=== PATIENT | male | born 1970 | race Caucasian/White ===

== ENCOUNTER 2017-12-30 13:52 | Emergency (ER) | payer BC ==
[2017-12-30] MEDS ORDERED: Alum Hydrox/Mag Hydrox/Simeth 30 ML, Lidocaine 2% 15 ML PO ONE ×2 (15:02)
[2017-12-30] MEDS ORDERED: Aspirin 81 MG Tab.Chew PO ONE (15:02)
[2017-12-30] MEDS ORDERED: Sodium Chloride 0.9% 10 ML Syringe FLUSH PRN (15:02)
--- NOTE | 2017-12-30 15:07 | EDM.PDOC ---
ED HPI GENERAL MEDICAL PROBLEM - General Chief Complaint: Neuro Symptoms/Deficits Stated Complaint: DIZZINESS/LIGHTHEADED Time Seen by Provider: 12/30/17 14:56 Source of Information: Reports: Patient History Limitations: Reports: No Limitations - History of Present Illness INITIAL COMMENTS - FREE TEXT/NARRATIVE: 47-year-old male presents ED complaining of left anterior chest discomfort worse with palpation. This started yesterday while driving in his vehicle. Patient states while driving he became dizzy and had the sensation he was going to pass out. Developed some tingling and numbness to his extremities that has all subsided. States he's had upset stomach and has noticed increased burping. He is currently on a high-protein diet. He is not short of breath. Denies any fevers. He's had no previous symptoms as such. There is no nausea or vomiting. He did not become diaphoretic with this episode. He describes the discomfort to the left anterior chest as a gnawing sensation not really a pain but just the discomfort. He does have a history of chronic back problems. There is 1st degree relatives with family history of heart disease. He currently is on medications for hypertension, hyperglycemia, and also takes a baby aspirin. Denies any increase acid reflux. No worsening symptoms noted with exertion. Patient does smoke 1.5 packs per day. No alcohol or recreational drug use. Discomfort is rated 2 out of 10. 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: Other (see below) Other Treatments WINDOW MAKER: referred from clinic left shoulder Pain Score (Numeric/FACES): 2 - Related Data Allergies Allergy/AdvReac Type Severity Reaction Status Date / Time No Known Allergies Allergy Verified 12/30/17 14:07 Home Meds: Home Meds Aspirin [Halfprin] 81 mg PO DAILY 12/30/17 [History] Diltiazem HCl [Diltiazem ER] 240 mg PO DAILY 12/30/17 [History] atorvaSTATin [Lipitor] 20 mg PO DAILY 12/30/17 [History] Past Medical History HEENT History: Reports: Impaired Vision Cardiovascular History: Reports: High Cholesterol, Hypertension Musculoskeletal History: Reports: Back Pain, Chronic Social & Family History - Family History Family Medical History: Noncontributory - Tobacco Use Smoking Status *Q: Current Every Day Smoker Years of Tobacco use: 25 Packs/Tins Daily: 1.5 - Caffeine Use Caffeine Use: Reports: Coffee, Tea - Recreational Drug Use Recreational Drug Use: No ED ROS GENERAL - Review of Systems Review Of Systems: ROS reveals no pertinent complaints other than HPI. ED EXAM, GENERAL - Physical Exam Exam: See Below Exam Limited By: No Limitations General Appearance: Alert, WD/WN, No Apparent Distress Eye Exam: Bilateral Eye: Normal Inspection Ears: Hearing Grossly Normal Nose: Normal Inspection Throat/Mouth: Normal Voice, No Airway Compromise Head: Atraumatic, Normocephalic Neck: Normal Inspection, Supple, Non-Tender, Full Range of Motion Respiratory/Chest: No Respiratory Distress, Lungs Clear, Normal Breath Sounds, No Accessory Muscle Use, Other (Tenderness noted to the left anterior chest just inferior to the clavicle worse with palpation. No swelling, bruising, rash , bony abnormalities.) Cardiovascular: Normal Peripheral Pulses, Regular Rate, Rhythm, No Murmur Peripheral Pulses: 2+: Radial (L), Radial (R), Posterior Tibial (L), Posterior Tibial (R) GI/Abdominal: Normal Bowel Sounds, Soft, Non-Tender, No Organomegaly, No Distention Extremities: Normal Inspection, Normal Range of Motion, Non-Tender, No Pedal Edema Neurological: Alert, Oriented, CN II-XII Intact, Normal Cognition, No Motor/ Sensory Deficits Psychiatric: Normal Affect, Normal Mood Skin Exam: Warm, Dry, Intact, Normal Color, No Rash Course - Vital Signs Last Recorded V/S: Last Vital Signs Temp 99.0 F 12/30/17 17:03 Pulse 82 12/30/17 17:03 Resp 14 12/30/17 17:03 BP 139/79 12/30/17 17:03 Pulse Ox 98 12/30/17 17:03 - Orders/Labs/Meds Orders: Active Orders 24 hr Category Date Time Status EKG Documentation Completion [RC] ASDIRECTED Care 12/30/17 14:35 Active Peripheral IV Care [RC] . DIRECTED Care 12/30/17 15:02 Active CXR [Chest 1V Frontal] [CR] Stat Exams 12/30/17 15:01 Taken Peripheral IV Insertion Adult [OM.PC] Routine Oth 12/30/17 15:02 Ordered EKG 12 Lead [EK] Stat Ther 12/30/17 14:34 Ordered Labs: Laboratory Tests 12/30/17 12/30/17 Range/Units 15:10 15:10 WBC 10.15 H (4.23-9.07) K/mm3 RBC 5.70 (4.63-6.08) M/mm3 Hgb 16.0 (13.7-17.5) gm/L Hct 46.8 (40.1-51.0) % MCV 82.1 (79.0-92.2) fl MCH 28.1 (25.7-32.2) pg MCHC 34.2 (32.2-35.5) g/dl RDW Std Deviation 46.6 H (35.1-43.9) fL Plt Count 178 (163-337) K/mm3 MPV 11.2 (9.4-12.3) fl Neutrophils % (Manual) 61 H (40-60) % Band Neutrophils % 0 (0-10) % Lymphocytes % (Manual) 26 (20-40) % Atypical Lymphs % 0 % Monocytes % (Manual) 10 (2-10) % Eosinophils % (Manual) 1 (0.8-7.0) % Basophils % (Manual) 2 H (0.2-1.2) Platelet Estimate Adequate Plt Morphology Comment Normal RBC Morph Comment Normal Sodium 139 (136-145) mEq/L Potassium 3.7 (3.5-5.1) mEq/L Chloride 105 (98-107) mEq/L Carbon Dioxide 26 (21-32) mEq/L Anion Gap 11.7 (5-15) BUN 12 (7-18) mg/dL Creatinine 0.9 (0.7-1.3) mg/dL Est Cr Clr Drug Dosing 110.39 mL/min Estimated GFR (MDRD) > 60 (>60) mL/min BUN/Creatinine Ratio 13.3 L (14-18) Glucose 106 (74-106) mg/dL Calcium 9.3 (8.5-10.1) mg/dL Total Bilirubin 0.4 (0.2-1.0) mg/dL AST 22 (15-37) U/L ALT 31 (16-63) U/L Alkaline Phosphatase 88 (46-116) U/L Troponin I < 0.017 (0.00-0.056) ng/mL C-Reactive Protein 1.0 (<1.0) mg/dL Total Protein 7.4 (6.4-8.2) g/dl Albumin 4.0 (3.4-5.0) g/dl Globulin 3.4 gm/dL Albumin/Globulin Ratio 1.2 (1-2) Meds: Medications Discontinued Medications Generic Name Dose Route Start Last Admin Trade Name Shaun PRN Reason Stop Dose Admin Aspirin 324 mg 12/30/17 15:02 12/30/17 15:16 Aspirin PO 12/30/17 15:03 324 mg ONETIME ONE Administration Al Hydroxide/Mg Hydroxide 30 0 ml 12/30/17 15:02 12/30/17 15:17 ml/ Lidocaine HCl 15 ml PO 12/30/17 15:03 45 ml ONETIME ONE Administration Sodium Chloride 10 ml 12/30/17 15:02 12/30/17 15:10 Saline Flush FLUSH 10 ml ASDIRECTED PRN Administration Keep Vein Open - Re-Assessments/Exams Free Text/Narrative Re-Assessment/Exam: IV established. Aspirin 324 mg by mouth. GI cocktail ordered. Initial lab studies will include: CBC, chem 14, CRP, troponin, UA, chest x-ray, and EKG. EKG sinus tachycardia rate [address] changes noted. Current heart rate 89. Blood pressure 145/87. SPO2 97%. Chest x-ray impression: no acute findings. reviewed with Dr. Shirley. Final interpretation is pending. Labs reviewed: CBC and chemistry panel were essentially normal. Troponin normal. CRP normal. 1600 Reassessment, discomfort has completely resolved with GI cocktail. He is ready to be discharged home. I suspect this is GI related but believe patient requires further cardiac workup 2nd to [facility] and family hx. He will see pcp this week for reexamination and schedule cardiac stress test. The patient remained hemodynamically stable while under my care in the E.D. I discussed the concerning symptoms for which to return to the E.D. with the patient. The patient verbalized understanding. All questions were answered. Departure - Departure Time of Disposition: 16:47 Disposition: Home, Self-Care 01 Condition: Good Clinical Impression: Dyspepsia, Chest wall pain Instructions: Chest Wall Pain Referrals: Raúl Hankins Jr, MD [Primary Care Provider] - Forms: ED Department Discharge Additional Instructions: Take Prilosec 40 mg every morning half-hour prior to eating breakfast. May utilize Maalox intermittently through the day for stomach irritation. Refrain from foods and drinks that cause stomach irritation. Suspect discomfort with a left anterior chest is chest wall at related. But would request do See your PCp this week for reevaluation and to schedule cardiac stress test. Due to your past medical history, family history, and smoking history suggest further cardiac workup. Stop smoking. Return to the E.D. if you develop any new or worsening symptoms. - My Orders Last 24 Hours: My Active Orders 12/30/17 14:34 EKG 12 Lead [EK] Stat 12/30/17 14:35 EKG Documentation Completion [RC] ASDIRECTED 12/30/17 15:01 CXR [Chest 1V Frontal] [CR] Stat 12/30/17 15:02 Peripheral IV Care [RC] . DIRECTED Peripheral IV Insertion Adult [OM.PC] Routine - Assessment/Plan Last 24 Hours: My Active Orders 12/30/17 14:34 EKG 12 Lead [EK] Stat 12/30/17 14:35 EKG Documentation Completion [RC] ASDIRECTED 12/30/17 15:01 CXR [Chest 1V Frontal] [CR] Stat 12/30/17 15:02 Peripheral IV Care [RC] . DIRECTED Peripheral IV Insertion Adult [OM.PC] Routine
--- NOTE | 2017-12-31 08:24 | CR ---
Chest: Portable view of the chest was obtained. Comparison: No prior chest x-ray. Heart size and mediastinum are normal. Lungs are clear. Bony structures are grossly intact. Impression: 1. Nothing acute is seen on portable chest x-ray. Diagnostic code #1
== END 2017-12-30 17:03 | disposition home or self-care (01) ==
LOC: JD.ED 13:52
DX: R10.13 Epigastric pain (principal); R07.89 Other chest pain; E78.00 Pure hypercholesterolemia, unspecified; I10 Essential (primary) hypertension; Z79.82 Long term (current) use of aspirin; F17.210 Nicotine dependence, cigarettes, uncomplicated
CPT/HCPCS: 36415; 71045; 80053; 84484; 85007; 85027; 86140; 93005; 99285; A9270; J7050; 93010; 99284

== ENCOUNTER 2022-01-09 10:12 | Day surgery (SDC) | payer BC ==
[~2022-01-09 10:12] MED LIST: Lactated Ringers 1,000 ML IV SCH; Lidocaine 1%/Sod Bicarbonate in NS 8.4% 1 ML Syringe IDERM PRN; Sodium Chloride 0.9% 10 ML Syringe FLUSH PRN; Sodium Chloride 0.9% 10 ML Syringe FLUSH SCH
[2022-01-09] MEDS ORDERED: Lidocaine 1% 4 ML ONE (12:27)
[2022-01-09] MEDS ORDERED: Propofol 200 MG/20 ML SDV ONE ×2 (12:27→12:28)
[2022-01-09] MEDS ORDERED: Midazolam 1 MG/ML 2 ML SDV ONE (12:33)
[2022-01-09] MEDS ORDERED: fentaNYL 100 MCG/2 ML SDV ONE (12:34)
== END 2022-01-09 14:27 | disposition home or self-care (01) ==
LOC: JD.SDS 10:12
PROVIDERS: ATTEND Surgery
DX: Z12.11 Encounter for screening for malignant neoplasm of colon (principal); D12.3 Benign neoplasm of transverse colon; D12.8 Benign neoplasm of rectum; I10 Essential (primary) hypertension; K21.9 Gastro-esophageal reflux disease without esophagitis; E78.00 Pure hypercholesterolemia, unspecified; G47.33 Obstructive sleep apnea (adult) (pediatric); E11.9 Type 2 diabetes mellitus without complications; Z98.890 Other specified postprocedural states; Z79.02 Long term (current) use of antithrombotics/antiplatelets; Z79.899 Other long term (current) drug therapy; Z79.84 Long term (current) use of oral hypoglycemic drugs; Z87.891 Personal history of nicotine dependence; Z91.018 Allergy to other foods
CPT/HCPCS: 45380; 45385; 82947; J2250; J2704; J3010; J7120

== ENCOUNTER 2025-03-15 06:38 | Day surgery (SDC) | payer BC ==
[~2025-03-15 06:38] MED LIST changes: -Lactated Ringers 1,000 ML IV SCH; -Lidocaine 1%/Sod Bicarbonate in NS 8.4% 1 ML Syringe IDERM PRN
[2025-03-15] MEDS ORDERED: propofoL 500 MG/50 ML 50 ML ONE (06:54)
[2025-03-15] MEDS: Lactated Ringers 1,000 ML IV SCH (07:00)
[2025-03-15] MEDS ORDERED: Propofol 200 MG/20 ML SDV ONE (07:34)
== END 2025-03-15 08:10 | disposition home or self-care (01) ==
LOC: JD.SDS 06:38
PROVIDERS: ATTEND Surgery
DX: Z12.11 Encounter for screening for malignant neoplasm of colon (principal); D12.2 Benign neoplasm of ascending colon; K63.5 Polyp of colon; K63.89 Other specified diseases of intestine; E11.9 Type 2 diabetes mellitus without complications; I10 Essential (primary) hypertension; Z86.0101 Personal history of adenomatous and serrated colon polyps; Z91.018 Allergy to other foods; Z79.82 Long term (current) use of aspirin; Z79.899 Other long term (current) drug therapy; Z87.891 Personal history of nicotine dependence
CPT/HCPCS: 45384; J2003; J2704; J7120; 00811